=== PATIENT | male | born 1950 ===

== ENCOUNTER 2025-02-17 01:12 | Outpatient (CLI) | payer OTHER, SELFPAY ==
--- NOTE | 2025-02-17 12:30 | DI.US_ITS ---
APPROVED REPORT EXAM: Comprehensive 2D, Doppler, and color-flow Echocardiogram Patient Location: Out-Patient Service Mechanic: Kwame Perdue RDCS (AE) Indications: HTN, ischemic heart disease, DM Other Information Study Quality: Adequate. Technically limited study due to body habitus. Conclusion Normal left ventricular wall thickness and chamber size. Ejection fraction is 60 to 65%. Wall motio n is normal Normal right ventricular size and function Both atria are normal in size Aortic valve is mildly sclerotic and trileaflet. There is mild aortic stenosis with a mean gradient of 11 mmHg Mild mitral annular calcification Wall motion Left Ventricle The left ventricle is normal size. The left ventricular systolic function is normal. The left ventric ular ejection fraction is within the normal range. There is normal left ventricular wall thickness. T here is normal LV segmental wall motion. There is no ventricular septal defect visualized. LVEF is 60 -65%. Right Ventricle The right ventricle is normal size. The right ventricular systolic function is normal. Atria The left atrium size is normal. The right atrium size is normal. The interatrial septum is intact wit h no evidence for an atrial septal defect. Aortic Valve The aortic valve is mildly sclerotic Aortic valve is trileaflet Mild aortic stenosis. Mean gradient i s 11 mmHg No aortic regurgitation is present. Mitral Valve Mild mitral annular calcification. No evidence of mitral valve stenosis. There is no mitral valve reg urgitation noted. Tricuspid Valve The tricuspid valve is normal in structure. There is no tricuspid valve stenosis. Trace tricuspid reg urgitation. Pulmonic Valve The pulmonary valve is normal in structure. There is no pulmonic valvular stenosis. There is no pulmo jose alfredo valvular regurgitation. Great Vessels The aortic root is normal in size. The ascending aorta is normal in size. Aortic arch is normal in ca liber. IVC is normal in size and collapses >50% with inspiration. Pericardium There is no pericardial effusion. 2D Dimensions IVSD d PLAX 1.08 cm M: 0.6-1.2 Ao Root d 3.47 cm M: 3.1 - 3.7 LVPW d PLAX 1.09 cm M: 0.6 - 1.2 Ao Asc Diam d 3.58 cm M: 2.6 - 3.4 LVID d PLAX 5.61 cm M: 4.2 - 5.8 LVDs 3.67 cm M: 2.5 - 4.0 LV EF Teichholz 63.0 % FS 34.54 % LV EDV (Teich) 154.4 mL LV ESV (Teich) 57.1 mL Stroke Vol Index (Teich) 43.61 M-Mode TAPSE 2.39 cm (M/F) >1.7 Auto EF LV EDV A4C 110.1 mL LV EDV A2C 95.9 mL LV EDV BP 106.6 mL LV ESV A4C 42.5 mL LV ESV A2C 33.6 mL LV ESV BP 38.4 mL LVEF(%) A4C 61.4 % LVEF(%) A2C 64.9 % LVEF(%) BP 64.0 % LV SV A4C 67.6 ml LV SV A2C 62.3 ml LV SV BP 68.2 ml LV CO A4C 4.3 L/min LV CO A2C 3.9 L/min LV CO BP 4.1 L/min HR A4C 63.27 BPM HR A2C 61.86 BPM LV EDV Index (BP) LA Volume LA Length A4C 5.7 cm LA Length A2C 6.4 cm LA Area A4C s 13.46 cm2 LA Area A2C s 20.26 cm2 LA Vol A4C A-L 26.89 mL LA Vol A2C A-L 54.30 mL LA Vol Biplane A-L 40.5 mL LA Vol/BSA A4C A-L LA Vol/BSA A2C A-L LA Vol/BSA BP A-L 18.1 mL/m2 LA Vol A4C MOD 25.6 mL LA Vol A2C MOD 52.7 mL LA Vol BP MOD 38.8 mL RA Volume RA Area A4C 12.5 cm2 RA ESV A4C (A-L) 28.2mL RA Vol/BSA A4C A-L RA Length A4C 4.7 cm RA ESV A4C (MOD) 29.0mL LV Diastology MV E' medial 0.062 (>0.07 m/s) MV E Vmax 0.69 (0.4-1.3 m/s) MV E/E' MED 11.19 (<14) MV A Vmax 1.10 (0.4-1.3 m/s) MV E' lateral 0.089 (>0.1 m/s) E/A Ratio 0.6 MV E/E' LAT 7.75 (<14) MV E' Average 0.075 m/s MV E/E'(average) 9.16 Aortic Valve AoV Vmax 2.35 m/s LVOT Vmax 1.02 m/s AoV Peak Grad 22.1 mmHg LVOT Peak Grad 4.2 mmHg AoV Area (Vmax) 1.60 cm2 LVOT VTI 0.225 m AoV VTI 0.512 m LVOT Mean Grad 2.4 mmHg AoV Mean Jairo. 1.60 m/s LVOT SV 83.16 mL AoV Mean Grad 11.8 mmHg LVOT Diam s 2.15 cm AoV Area (VTI) 1.62 cm2 AV Regurg Peak Gr. 22.13 mmHg Velocity Ratio 0.43 Mitral Valve MV DT 187 (160-240 msec) Pulmonary Valve RVOT Vmax 0.60 m/s RVOT Peak Gr. 1.5 mmHg RVOT VTI 0.146 m RVOT Mean Gr. 0.9 mmHg Tricuspid Valve TV S' 0.13 m/s
== END 2025-02-17 01:32 ==
PROVIDERS: Visit Provider Internal Medicine Cardiovascular Disease
DX: J45.909 Unspecified asthma, uncomplicated (principal); I25.10 Atherosclerotic heart disease of native coronary artery without angina pectoris; I10 Essential (primary) hypertension; I35.0 Nonrheumatic aortic (valve) stenosis
CPT/HCPCS: 93306

== ENCOUNTER 2025-02-17 12:39 | Outpatient (CLI) | payer OTHER, SELFPAY ==
[2025-02-17 12:21] LABS: Bilirubin Negative (Negative); Blood Negative (Negative); Clarity Clear (Clear); Glucose >=1000 mg/dL (Negative); Ketones Negative (Negative); Leukocyte Esterase Negative (Negative); Nitrite Negative (Negative); Specific Gravity 1.015 (1.005-1.025); Urobilinogen 0.2 mg/dL (Up to 0.2); pH 5.5 (5-8)
[2025-02-17 12:52] LABS: Bacteria Rare HPF (Negative); C & S Indicated? No; Epithelial Cells Rare HPF (Negative); WBC 0-2 HPF (0-5)
[2025-02-17 13:19] LABS: ALT 31 U/L (16-63); AST 22 U/L (15-37); Alkaline Phosphatase 101 U/L (46-116); Anion Gap 6.9 mmol/L (3-11); BUN 26 mg/dL (7-18); Bilirubin, Total 0.5 mg/dL (0.2-1.0); CO2 28.1 mmol/L (21.0-32.0); CREATININE 1.4 mg/dL (0.70-1.30); Calcium 9.5 mg/dL (8.5-10.1); Chloride 104 mmol/L (98-107); Estimated GFR 52.09 (mL/min/1.73m2); Glucose 245 mg/dL (74-106); Potassium 4.7 mmol/L (3.5-5.1); Sodium 139 mmol/L (136-145); Total Protein 8.1 g/dL (6.4-8.2)
== END 2025-02-17 12:40 | disposition home or self-care (01) ==
LOC: LBO 12:42
PROVIDERS: Visit Provider Chiropractor
DX: I25.10 Atherosclerotic heart disease of native coronary artery without angina pectoris (principal); J45.909 Unspecified asthma, uncomplicated; I10 Essential (primary) hypertension; E11.9 Type 2 diabetes mellitus without complications
CPT/HCPCS: 36415; 80053; 81003; 81015

== ENCOUNTER 2025-03-21 04:46 | Outpatient (CLI) | payer OTHER, SELFPAY ==
[2025-03-21] MEDS: Inhaler, Assist Device 1 EACH MC (13:46)
[2025-03-21] MEDS: Levalbuterol HFA 15 GM INH 4 PUFF IH (13:46)
--- NOTE | 2025-03-31 11:25 | W.PFT ---
Date of service: 03/21/25 Time of Service: 12:50 Pulmonary Function Test Result Indications: Asthma Interpretation Spirometry: No airflow limitation. No significant bronchodilator response. Impression Normal spirometry Clinical Correlation therefore is recommended.
== END 2025-03-21 04:47 | disposition home or self-care (01) ==
PROVIDERS: Visit Provider Student in an Organized Health Care Education/Training Program
DX: J45.909 Unspecified asthma, uncomplicated (principal)
CPT/HCPCS: 94060